=== PATIENT | male | born 1965 | race Caucasian/White ===

== ENCOUNTER 2025-05-04 10:24 | Emergency (ER) | payer BC ==
--- OUTSIDE RECORDS SUMMARY | 2025-05-04 10:28 | XMS REPORT | Continuity of Care Document ---
Author Name Unknown Address [address] [place] [address] [facility] [place] Address [address] [place] [address] Care Team Providers Care Contact Center Consultant Name Role Phone Daron Choe MD Primary Care Physician [phone] RAYNA CASIANO Attending Clinician FREDDY Sheets Attending Clinician Unavailable BALDO ZHOU Attending Clinician Unavailable JONATHON GIVENS Attending Clinician Unavail able TRED76 Attending Clinician Unavailable LAB90 Attending Clinician Unavailable RODNEY HAYWOOD Attending Clinician Unavailable SLIM ELIAS Attending Clinician Unavailab JOEL Taylor Attending Clinician Unavailable FLAVIO AVILEZ Attending Clinician Unavailable DARON CHOE Attending Clinician Unavailable DANIAL JOHNSON Attending Clinician Unavailable BACILIO MARIE Attending Clinician Unavailable FAN HAMILTON Attending Clinician KHADIJAH Desai Attending Clinician Unavailabl ENRICO Birch Attending Clinician Unavailable CHERELLE CARR Attending Clinician UnavailAracely Patel MD Attending Clinician [phone] Lab, Adc Fam Pob I Attending Clinician Unavailab Suzy Moran Attending Clinician [phone] SUZY BRANCH Attending Clinician Unavailabl e Payers Payer Name Policy Type Policy Number Effective Date Expirati on Date Source [facility] 9 [id number] 2020 00:00:00 Problems Condition Name Condition Details Condition Category Status Onset Date Resolution Date Last Treatment Date Treating Clinician Comments Source Well adult exam Well adult exam Disease Active 12-12 00:00: 00 Kimberly Secarlos albertoold - Externa l Primary hypertensi on Primary hypertensi on Disease Active 11-20 00:00: 00 Kimberly Secarlos albertoold - Externa l Bronchitis Bronchitis Disease Active 09-22 00:00: 00 Kimberly Seybold - Externa l Thoracic aortic aneurysm without rupture Thoracic aortic aneurysm without rupture Disease Active 02-01 00:00: 00 Overview: Formattin g of this note might be different from the original. ECHO showed dilated aortic root 4.2 cm and dilated ascending aorta 4.1 cm. Kimberly Joynerold - Externa l ASD (atrial septal defect) (HHS-HCC) ASD (atrial septal defect) (HHS-HCC) Disease Active 01-03 00:00: 00 Overview: Formattin g of this note might be different from the original. ECHO showed ASD shunts from left to right. Normal EF 65-70%. Normal atrial and ventricle size. Mild Mitral regurgita tion. Aortic root dilated 4.2 cm. Ascending aorta dilated 4.1 cm. Kimberly Secarlos albertoold - Externa l Nonrheumat ic mitral valve regurgitat ion Nonrheumat ic mitral valve regurgitat ion Disease Active 01-03 00:00: 00 Overview: Formattin g of this note might be different from the original. ECHO showed mild mitral regurgita tion. Kimberly Seybold - Externa l Palpitatio ns Palpitatio ns Disease Active 12-07 00:00: 00 Kimberly Joynerold - Externa l Prehyperte nsion Prehyperte nsion Disease Active 12-07 00:00: 00 Kimberly Seybold - Externa l Primary hypertensi on Primary hypertensi on Disease Active 12-07 00:00: 00 Kimberly Seybold - Externa l Seasonal allergies Seasonal allergies Disease Active 12-20 00:00: 00 Kimberly Joynerold - Externa l Family history of atrial fibrillati on Family history of atrial fibrillati on Disease Active Kimberly Joynerold - Externa l Family history of melanoma Family history of melanoma Disease Active Kimberly Seybold - Externa l Allergies, Adverse Reactions, Alerts Allergy Name Allergy Type Status Severity Reaction(s) Onset Date Inactive Date Treating Clinician Comments Source NO KNOWN ALLERGIE S Drug Class Active [facility] Social History Social Habit Start Date Stop Date Quantity Comments Source Sexual orientation 2021-12-07 08:05:49 Heterosexual (finding) Kimberly Joynerold - External History SDOH Alcohol Std Drinks Kimberly middleton - External History SDOH Alcohol Binge Kimberly Singh - External History of Occupation Kimberly Singh - External Gender identity Sruthi Singh - External Alcoholic beverage intake 2025-02-04 00:00:00 2025-02-04 00:00:00 Current drinker of alcohol (finding) Kimberly Singh - External Alcohol Comment 2024-12-12 00:00:00 2024-12-12 00:00:00 rarely Kimberly Singh - External History of Social function 2024-11-20 00:00:00 2024-11-20 00:00:00 Kimberly Singh - External Alcohol intake 2023-09-27 00:00:00 2023-09-27 00:00:00 Ex-drinker (finding) Kimberly Singh - External Education 2021-12-07 00:00:00 2021-12-07 00:00:00 17 Kimberly Singh - External Tobacco use and exposure 2021-12-07 00:00:00 2021-12-07 00:00:00 Smokeless tobacco non-user Kimberly Singh - External Exposure to SARS-CoV-2 (event) 2021-10-16 00:00:00 2021-11-15 08:24:00 Not sure Kimberly Singh History SDOH Alcohol Frequency 2020-12-20 00:00:00 2020-12-20 00:00:00 1 Kimberly Singh - External Sex 2020-12-14 17:33:02 2020-12-14 17:33:02 Male (finding) Kimberly Singh - External Sex assigned at 1965 00:00:00 1965 00:00:00 Kimberly Uribe Smoking Status Start Date Stop Date Source Unknown if [facility] Never smoked tobacco Kimberly Uribe Medications Ordered Medication Name Filled Medication Name Start Date Stop Date Current Medication? Ordering Clinician Indication Dosage Frequency Signature (SIG) Comments Components Source Multiple Vitamins-Mi nerals (Multi Adult Gummies) oral Chewable Tablet 02-04 16:03: 03 Yes 1{tbl} QD Take 1 tablet by mouth daily. Kimberly shah Zinc 100 MG oral Tablet 02-04 16:03: 03 Yes 1{tbl} QD Take 1 tablet by mouth daily. Kimberly shah Cholecalcif ari (Vitamin D) 25 MCG (1000 UT) oral Tablet 02-04 16:03: 03 Yes 25U QD Take 25 units by mouth daily. Kimberly shah Cetirizine (ZyrTEC Allergy) 10 MG oral Tablet 02-04 16:03: 03 Yes 75 10mg QD Take 1 tablet (10 mg total) by mouth daily. Indication s: Hayfever Kimberly shah Creatine does not apply Powder 02-04 16:03: 03 Yes 5mg QD Take 5 mg by mouth daily. Kimberly shah Celecoxib (CeleBREX) 100 MG oral Capsule 02-04 00:00: 00 Yes [id number] 100mg Q.5D Take 1 capsule (100 mg total) by mouth 2 times daily as needed. Kimberly shah Tizanidine HCl 2 MG oral Tablet 02-04 00:00: 00 Yes [id number] 2mg QD Take 1 tablet (2 mg total) by mouth nightly as needed. Kimberly shah Losartan Potassium 25 MG oral Tablet -08 00:00: 00 Yes 25mg QD Take 1 tablet (25 mg total) by mouth daily. Kimberly shah Creatine does not apply Powder - 15:07: 56 Yes 5mg QD 5 mg by does not apply route daily. Kimberly shah Cetirizine (ZyrTEC Allergy) 10 MG oral Tablet 12-12 15:07: 01 Yes 75 10mg QD Take 1 tablet (10 mg total) by mouth daily. Indication s: Hayfever Kimberly shah Cholecalcif ari (Vitamin D) 25 MCG (1000 UT) oral Tablet 12-12 15:06: 33 Yes 25U QD Take 25 units by mouth daily. Kimberly shah Zinc 100 MG oral Tablet 12-12 15:06: 04 Yes 1{tbl} QD Take 1 tablet by mouth daily. Kimberly shah Multiple Vitamins-Mi nerals (Multi Adult Gummies) oral Chewable Tablet 12-12 14:31: 29 Yes 1{tbl} Take 1 tablet by mouth Kimberly shah Metoprolol Succinate 25 MG oral TABLET SR 24 HR 12-12 00:00: 00 Yes [id number] 12.5mg QD Take 0.5 tablets (12.5 mg total) by mouth daily Take 1/2 tablet (12.5 mg tablet) by mouth daily. Kimberly shah Magnesium Salicylate 500 MG oral Tablet 12-12 00:00: 00 Yes 1{tbl} Q.5D Take 1 tablet by mouth in the morning and 1 tablet before bedtime. Kimberly shah Multiple Vitamins-Mi nerals (Multi Adult Gummies) oral Chewable Tablet 11-20 08:07: 16 Yes 1{tbl} Take 1 tablet by mouth Kimberly shah Metoprolol Succinate 25 MG oral TABLET SR 24 HR 11-20 00:00: 00 12-12 00:00 :00 No [id number] Take 1/2 tablet (12.5 mg tablet) by mouth daily. Kimberly shah Multiple Vitamins-Mi nerals (Multi Adult Gummies) oral Chewable Tablet 1-11 13:26: 12 Yes 1{tbl} Take 1 tablet by mouth Kimberly shah Multiple Vitamins-Mi nerals (Multi Adult Gummies) oral Chewable Tablet 09-23 09:50: 51 Yes 1{tbl} Take 1 tablet by mouth Kimberly shah Amoxicillin -Pot Clavulanate 875-125 MG oral Tablet 09-23 00:00: 00 11-20 00:00 :00 No 1{tbl} Q.5D Take 1 tablet by mouth 2 times daily. Kimberly shah predniSONE (DELTASONE) 20 MG oral tablet 09-23 00:00: 00 11-20 00:00 :00 No Take 2 tabs daily for 7 days. Kimberly shah Benzonatate (Tessalon Perles) 100 MG oral Capsule 09-23 00:00: 00 11-20 00:00 :00 No 100mg Q.[id number] 3D Take 1 capsule (100 mg total) by mouth 3 times daily as needed for cough. Kimberly shah methylPREDN ISolone 4 MG oral Tablet Therapy Pack 05-01 00:00: 00 Yes [id number] Take 1 kiesha by mouth See Admin Instructio ns Use as directed Kimberly shah Pseudoephed rine-Guaife nesin (Mucinex D Max Strength) 120-1200 MG oral Tablet 12 Hour Sustained Release 05-01 00:00: 00 Yes [id number] 1{tbl} Take 1 tablet by mouth every 12 hours Kimberly shah Benzonatate (Tessalon Perles) 100 MG oral Capsule 05-01 00:00: 00 Yes [id number] 100mg Q.[id number] 3D Take 1 capsule (100 mg total) by mouth 3 times daily as needed for cough Kimberly shah FLUTICASONE PROPIONATE, NASAL, (Flonase) 50 MCG/ACT nasal Suspension 05-01 00:00: 00 Yes [id number] 50ug QD Use 1 spray (50 mcg total) in each nostril daily as needed for rhinitis Kimberly shah Azithromyci n 250 MG oral Tablet 05-01 00:00: 00 05-07 04:59 :00 No [id number] Take 2 tablets by mouth on day 1 then 1 tablet by mouth daily for 4 days thereafter . Kimberly shah FLUTICASONE PROPIONATE, NASAL, 50 MCG/ACT nasal Suspension 10-05 00:00: 00 05-01 00:00 :00 No [id number] USE 2 SPRAYS (100 MCG TOTAL) INTO EACH NOSTRIL EVERY DAY Kimberly shah Triamcinolo ne Acetonide (KENALOG) 40 mg/mL 09-22 14:30: 00 09-22 14:15 :00 No [id number] 40mg Kimberly shah Fexofenadin e HCl 60 MG oral Tablet 09-22 07:59: 57 Yes 60mg Take 60 mg by mouth daily Kimberly shah Multiple Vitamins-Mi nerals (Multi Adult Gummies) oral Chewable Tablet 09-22 07:59: 57 Yes 1{tbl} Take 1 tablet by mouth Kimberly shah predniSONE (DELTASONE) 10 MG oral tablet 09-22 00:00: 00 05-01 00:00 :00 No [id number] One pill twice daily for 5 days then one pill daily for 5 days Kimberly shah Amoxicillin -Pot Clavulanate 875-125 MG oral Tablet 09-21 00:00: 00 Yes [id number] 1{tbl} Take 1 tablet by mouth 2 times daily Kimberly shah Aspirin (Aspirin 81) 81 MG oral Chewable Tablet 09-20 08:13: 32 09-20 00:00 :00 No 81mg Take 81 mg by mouth daily Kimberly shah Benzonatate (Tessalon Perles) 100 MG oral Capsule 09-20 00:00: 00 05-01 00:00 :00 No [id number] 100mg Q.[id number] 3D Take 1 capsule (100 mg total) by mouth 3 times daily as needed for cough Kimberly shah Azithromyci n 250 MG oral Tablet 09-20 00:00: 00 09-26 05:59 :00 No [id number] Take 2 tablets by mouth on day 1 then 1 tablet by mouth daily for 4 days thereafter . Kimberly shah FLUTICASONE PROPIONATE, NASAL, 50 MCG/ACT nasal Suspension 2021-09 00:00: 00 Yes [id number] 100ug Use 2 sprays (100 mcg total) in each nostril daily Kimberly shah Oseltamivir Phosphate (Tamiflu) 75 MG oral Capsule 2021-09 00:00: 00 09-19 05:59 :00 No [id number] 75mg Take 1 capsule (75 mg total) by mouth 2 times daily for 5 days Kimberly shah Aspirin (Aspirin 81) 81 MG oral Chewable Tablet 2021-09 16:30: 32 Yes 81mg Take 81 mg by mouth daily Kimberly shah Fexofenadin e HCl (Corie Allergy) 60 MG oral Tablet 2021-09 16:30: 32 Yes 60mg Take 60 mg by mouth daily Kimberly shah Multiple Vitamins-Mi nerals (Multi Adult Gummies) oral Chewable Tablet 2021-09 16:30: 32 Yes 1{tbl} Take 1 tablet by mouth Kimberly shah Metoprolol Succinate 25 MG oral Capsule ER 24 Hour Sprinkle 04-17 00:00: 00 11-20 00:00 :00 No 12.5mg 12.5 mg. Kimberly shah Aspirin (Aspirin 81) 81 MG oral Chewable Tablet 04-18 16:29: 35 Yes 81mg Take 81 mg by mouth daily Kimberly Singh Fexofenadin e HCl (Corie Allergy) 60 MG oral Tablet 04-18 16:29: 35 Yes 60mg Take 60 mg by mouth daily Kimberly Singh Multiple Vitamins-Mi nerals (Multi Adult Gummies) oral Chewable Tablet 04-18 16:29: 35 Yes 1{tbl} Take 1 tablet by mouth Kimberly Singh Vital Signs Vital Name Observation Time Observation Value Comments S ource Systolic blood pressure 2025-02-04 21:02:00 130 mm[Hg] Kimberly Seybo ld - External Diastolic blood pressure 2025-02-04 21:02:00 84 mm[Hg] Kimberly Seybo ld - External Heart rate 2025-02-04 21:02:00 71 /min Kelse y Seybold - External Body temperature 2025-02-04 21:02:00 36.67 Kriss Kimberly Seybold - External Respiratory rate 2025-02-04 21:02:00 18 /min Kimberly Seybold - External Body height 2025-02-04 21:02:00 185.4 cm Sruthi ey Seybold - External Body weight 2025-02-04 21:02:00 83.462 kg Sruthi ey Seybold - External BMI 2025-02-04 21:02:00 24.28 kg/m2 Sruthi ey Seybold - External Oxygen saturation in Arterial blood by Pulse oximetry 2025-02-04 21:02:00 99 /min Kimberly Felixybo ld - External Systolic blood pressure 2024-12-12 19:31:00 132 mm[Hg] Kimberly Seybo ld - External Diastolic blood pressure 2024-12-12 19:31:00 82 mm[Hg] Kimberly Felixybo ld - External Heart rate 2024-12-12 19:31:00 70 /min Zafarse y Seybold - External Body temperature 2024-12-12 19:31:00 36.72 Kriss Kimberly Seybold - External Respiratory rate 2024-12-12 19:31:00 16 /min Kimberly Seybold - External Body height 2024-12-12 19:31:00 188 cm Sruthi ey Seybold - External Body weight 2024-12-12 19:31:00 84.097 kg Sruthi ey Seybold - External BMI 2024-12-12 19:31:00 23.80 kg/m2 Sruthi ey Seybold - External Oxygen saturation in Arterial blood by Pulse oximetry 2024-12-12 19:31:00 99 /min Kimberly Felixybo ld - External Systolic blood pressure 2024-11-20 13:56:00 132 mm[Hg] Kimberly Joynero ld - External Diastolic blood pressure 2024-11-20 13:56:00 80 mm[Hg] Kimberly Joynero ld - External Heart rate 2024-11-20 13:56:00 70 /min Kelse y Seybold - External Body temperature 2024-11-20 13:56:00 36.94 Kriss Kimberly Seybold - External Respiratory rate 2024-11-20 13:56:00 20 /min Kimberly Seybold - External Body weight 2024-11-20 13:56:00 85.333 kg Sruthi ey Seybold - External BMI 2024-11-20 13:56:00 24.82 kg/m2 Sruthi ey Seybold - External Oxygen saturation in Arterial blood by Pulse oximetry 2024-11-20 13:56:00 99 /min Kimberly Joynero ld - External Body height 2023-09-27 19:26:00 185.4 cm Sruthi ey Seybold - External Body weight 2023-09-27 19:26:00 78.472 kg Sruthi ey Seybold - External BMI 2023-09-27 19:26:00 22.82 kg/m2 Sruthi ey Seybold - External Systolic blood pressure 2022-09-22 13:57:00 122 mm[Hg] Kimberly Felixybo ld - External Diastolic blood pressure 2022-09-22 13:57:00 74 mm[Hg] Kimberly Joynero ld - External Heart rate 2022-09-22 13:57:00 76 /min Zafarse y Seybold - External Body temperature 2022-09-22 13:57:00 36.44 Kriss Kimberly Seybold - External Respiratory rate 2022-09-22 13:57:00 14 /min Kimberly Seybold - External Body height 2022-09-22 13:57:00 185.4 cm Sruthi ey Seybold - External Body weight 2022-09-22 13:57:00 80.74 kg Sruthi ey Seybold - External BMI 2022-09-22 13:57:00 23.48 kg/m2 Sruthi ey Seybold - External Encounters Start Date/Time End Date/Time Encounter Type Admission Type Attending [facility] Care Department Encounter ID Source 2025-12-21 09:00:00 2025-12-21 09:00:00 Outpatient WARAYNA TAVERAS KIMBERLY PRINCE [id number] [facility] 2025-06-12 09:30:00 2025-06-12 09:30:00 Outpatient FREDDY NAVA [facility]IMBER[facility] PRINCE [id number] [facility] 2025-05-14 08:00:00 2025-05-14 08:00:00 Outpatient BALDO ZHOU [id number] [facility]25-03-19 00:00:00 2025-03-19 00:00:00 Outpatient RAYNA CASIANO [facility] PRINCE [id number] [facility] 2025-03-18 10:15:00 2025-03-18 10:15:00 Outpatient PREZAFREDDY Ang [facility] PRINCE [id number] [facility] 2025-03-17 00:00:00 2025-03-17 00:00:00 Outpatient FREDDY NAVA KIMBERLY PRINCE [id number] [facility] 2025-02-26 00:00:00 2025-02-26 00:00:00 Outpatient PREZASFREDDY KIMBERLY PRINCE [id number] [facility] 2025-02-13 00:00:00 2025-02-13 00:00:00 Outpatient FREDDY NAVA KIMBERLY PRINCE [id number] [facility] 2025-02-06 11:10:00 2025-02-06 11:10:00 Outpatient KIMBERLY PRINCE [id number] [facility] 2025-02-06 11:05:00 2025-02-06 11:05:00 Outpatient KIMBERLY PRINCE [id number] [facility] 2025-02-04 16:15:00 2025-02-04 16:15:00 Outpatient FREDDY NAVA KIMBERLY PRINCE [id number] [facility] 2025-02-04 00:00:00 2025-02-04 00:00:00 Outpatient KIMBERLY PRINCE [id number] [facility] 2025-02-02 00:00:00 2025-02-02 00:00:00 Outpatient FREDDY NAVA KIMBERLY PRINCE [id number] Kimberly Felixmikhail 2025-01-05 00:00:00 2025-01-05 00:00:00 Outpatient RAYNA CASIANO [facility]BERLY PRINCE [id number] [facility]25-01-02 00:00:00 2025-01-02 00:00:00 Outpatient RASHAUNIRMAJONATHON Pastor KIMBERLY PRINCE [id number] [facility] 2025-01-01 13:30:00 2025-01-01 13:30:00 Outpatient KIMBERLY PRINCE [id number] [facility] 2025-01-01 08:45:00 2025-01-01 08:45:00 Outpatient RAYNA CASIAN[facility]IN[facility] [id number] [facility]-23 08:30:00 2024-12-23 08:30:00 Outpatient TRED76 [facility]IM[facility]LY PRINCE [id number] [facility] 2024-12-23 08:00:00 2024-12-23 08:00:00 Outpatient RAYNA CASIANO KIMBERLY PRINCE [id number] [facility] 2024-12-16 00:00:00 2024-12-16 00:00:00 Outpatient FREDDY NAVA [facility] PRINCE [id number] [facility] 2024-12-16 00:00:00 2024-12-16 00:00:00 Outpatient KIMBERLY PRINCE [id number] [facility] 2024-12-15 08:05:00 2024-12-15 08:05:00 Outpatient LAB90 KIMBERLY PRINCE [id number] [facility] 2024-12-12 14:45:00 2024-12-12 14:45:00 Outpatient FREDDY NAVA KIMBERLY PRINCE [id number] [facility] 2024-12-12 00:00:00 2024-12-12 00:00:00 Outpatient KIMBERLY PRINCE [id number] Kimberly Seybmikhail 2024-11-20 08:00:00 2024-11-20 08:00:00 Outpatient RODNEY HAYWOOD [id number] Kimberly Seybold 2024-11-18 00:00:00 2024-11-18 00:00:00 Outpatient PREFREDDY KNIGHT KIMBERLY PRINCE [id number] [facility] 2024-11-18 00:00:00 2024-11-18 00:00:00 Outpatient MARENFRANSISCORAYNA Khan KIMBERLY PRINCE [id number] [facility] 2023-09-27 13:30:00 2023-09-27 13:30:00 Outpatient CURT SLIMDragan PRINCE [id number] [facility] 2023-09-23 10:30:00 2023-09-23 10:30:00 Outpatient MIGUELJOEL KIMBERLY PRINCE [id number] [facility] 2023-09-23 00:00:00 2023-09-23 00:00:00 Outpatient FLAVIO AVILEZ KIMBERLY PRINCE [id number] [facility] 2023-06-18 07:30:00 2023-06-18 07:30:00 Outpatient KIMBERLY PRINCE [id number] [facility] 2023-06-18 00:00:00 2023-06-18 00:00:00 Outpatient DARON CHOE [facility]IMBERLY PRINCE [id number] [facility] 2023-06-14 13:45:00 2023-06-14 13:45:00 Outpatient TREJulian6 KIMBERLY PRINCE [id number] [facility] 2023-06-14 13:15:00 2023-06-14 13:15:00 Outpatient RAYNA CASIANO [facility] PRINCE [id number] [facility] 2023-05-01 09:45:00 2023-05-01 09:45:00 Outpatient DANIAL JOHNSON KIMBERLY PRINCE [id number] [facility] 2023-05-01 07:05:00 2023-05-01 07:05:00 Outpatient BACILIO MARIE [id number] Kimberly Seybold 2023-05-01 00:00:00 2023-05-01 00:00:00 Outpatient PREBIASRFEDDY KIMBERLY PRINCE [id number] [facility] 2023-04-27 13:30:00 2023-04-27 13:30:00 Outpatient HARMS, FAN PRINCE KIMBERLY [id number] Kimberly [facility] 2023-04-05 00:00:00 2023-04-05 00:00:00 Outpatient PREZAS, FREDDY PRINCE KIMBERLY [id number] Kimberly [facility] 2023-04-04 00:00:00 2023-04-04 00:00:00 Outpatient KIMBERLY KIMBERLY [id number] Kimberly [facility] 2023-04-04 00:00:00 2023-04-04 00:00:00 Outpatient PREZAS, FREDDY PRINCE KIMBERLY [id number] Kimberly [facility] 2023-03-29 00:00:00 2023-03-29 00:00:00 Outpatient KIMBERLY KIMBERLY [id number] Kimberly [facility] 2022-11-06 09:15:00 2022-11-06 09:15:00 Outpatient PREZAS, FREDDY KIMBERLY KIMBERLY [id number] [facility] 2022-10-20 08:45:00 2022-10-20 08:45:00 Outpatient PREZAS, FREDDY PRINCE KIMBERLY [id number] [facility] 2022-10-05 00:00:00 2022-10-05 00:00:00 Outpatient WUKHADIJAH [id number] [facility] 2022-09-22 09:15:00 2022-09-22 09:15:00 Outpatient PREZAS, FREDDY KIMBERLY PRINCE [id number] Kimberly [facility] 2022-09-21 13:30:00 2022-09-21 13:30:00 Outpatient PREZAS, FREDDY KIMBERLY KIMBERLY [id number] Kimberly [facility] 2022-09-21 00:00:00 2022-09-21 00:00:00 Outpatient PREZAS, FREDDY KIMBERLY PRINCE [id number] Kimberly [facility] 2022-09-20 10:00:00 2022-09-20 10:00:00 Outpatient PREZAS, FREDDY KIMBERLY PRINCE [id number] [facility] 2022-09-13 14:15:00 2022-09-13 14:15:00 Outpatient WUKHADIJAH ACUNASEY KIMBERLY [id number] Kimberly Singh 2022-08-03 00:00:00 2022-08-03 00:00:00 Outpatient FREDDY NAVA KIMBERLY PRINCE [id number] Kimberly Singh 2022-08-03 00:00:00 2022-08-03 00:00:00 Outpatient FREDDY NAVA KIMBERLY PRINCE [id number] Kimberly Singh 2022-02-15 00:00:00 2022-02-15 00:00:00 Outpatient FREDDY NAVA KIMBERLY PRINCE [id number] Kimberly Singh 2022-01-31 00:00:00 2022-01-31 00:00:00 Outpatient FREDDY NAVA KIMBERLY PRINCE [id number] [facility] 2021-12-23 00:00:00 2021-12-23 00:00:00 Outpatient FREDDY NAVA KIMBERLY PRINCE [id number] Kimberly [facility] 2021-12-13 10:15:00 2021-12-13 10:15:00 Outpatient ENRICO HOWELL KIMBERLY PRINCE [id number] Kimberly Felixmikhail 2021-12-08 08:20:00 2021-12-08 08:20:00 Outpatient VASILIY KIMBERLY PRINCE [id number] Kimberly [facility] 2021-12-07 08:45:00 2021-12-07 08:45:00 Telemedici ne FREDDY NAVA [place] [id number] Kimberly mikhail 2021-12-07 00:00:00 2021-12-07 00:00:00 Outpatient KIMBERLY PRINCE [id number] Kimberly mikhail 2021-12-07 00:00:00 2021-12-07 00:00:00 Outpatient DARON CHOE KIMBERLY PRINCE [id number] [facility] 2021-12-07 00:00:00 2021-12-07 00:00:00 Outpatient FREDDY NAVA KIMBERLY PRINCE [id number] Kimberly [facility] 2021-11-16 09:45:00 2021-11-16 09:45:00 Outpatient CHERELLE CARR KIMBERLY PRINCE [id number] [facility] 2021-04-20 00:00:00 2021-04-20 00:00:00 Telephone Aracely Ulrich [facility] [id number] [facility] 2021-04-19 09:00:00 2021-04-19 09:00:00 Outpatient DARON CHOE KIMBERLY PRINCE [id number] [facility] 2021-04-18 16:30:00 2021-04-18 16:30:00 Outpatient ENRICO HOWELL KIMBERLY PRINCE [id number] [facility] 2021-04-18 10:35:58 2021-04-18 10:55:58 Laboratory Only Lab, Adc Fam Pob I Roselia [facility] [id number] [facility] 2021-04-18 10:40:00 2021-04-18 10:40:00 Outpatient Milton [facility] [id number] [facility] Notes Date/Time Note Provider Source 2025-02-04 16:03:09 Chief Complaint Patient presents with Back Pain Foot Pain T [facility] 2024-12-12 14:31:29 Chief Complaint Patient presents with Routine Follow-up [facility] 2024-11-20 08:02:05 Chief Complaint Patient presents with Follow-up Needs refill on BP medications Zeny Dailey [facility] 2023-09-27 13:26:12 Chief Complaint Patient presents with Cough Dry cough x5days [phone] (home) Bala Kim CMA I [facility] 2023-09-23 09:50:51 Chief Complaint Patient presents with URI Fever, headache, runny nose - See T 09/23 [facility]
[2025-05-04 10:47] LABS: Absolute Lymphocytes (CBC) 1.3 K/uL (0.7-4.9); Hematocrit 42.7 % (39.6-49.0); Hemoglobin 14.9 g/dL (13.6-17.9); MCH 32.4 pg (27.0-35.0); MCHC 34.9 g/dL (32.0-36.0); MCV 92.8 fL (80-100); MPV 7.8 fL (7.6-11.3); Nucleated RBC Absolute Count 0.0 (0-0); Nucleated Red Blood Cells % 0.1 % (0-0); RBC Red Blood Cell Count 4.60 M/uL (4.33-5.43); White Blood Count 5.50 thou/uL (4.3-10.9)
[2025-05-04 10:58] LABS: PT Prothrombin Time 13.4 SECONDS (10-13.0); Protime INR 1.19
[2025-05-04 11:19] LABS: ALT/SGPT 34.0 U/L (16-61); AST/SGOT 18.0 U/L (15-37); Albumin 3.7 g/dL (3.4-5.0); Albumin/Globulin Ratio 1.4 (1.1-1.8); Alkaline Phosphatase 53.0 U/L (45-117); Anion Gap 6.2 mEq/L (5.0-15.0); BUN Blood Urea Nitrogen 27.0 mg/dL (7-18); Bilirubin Indirect, Calculated 0.5 mg/dL (0.2-0.8); Globulin 2.7 g/dL (2.3-3.5); Glucose Level 98.0 mg/dL (74-106); Magnesium 2.2 mg/dL (1.6-2.4); NT PRO-BNP 27.0 pg/mL (<125); Potassium 4.2 mEq/L (3.5-5.1); Troponin High Sensitivity 4.6 pg/mL (<58.9)
--- NOTE | 2025-05-04 11:49 | RAD REPORT ---
EXAM: Angio Aorta For Dissection CLINICAL INDICATION: Male, 60 years chest pain TECHNIQUE: CTA of the aorta was obtained including the chest, abdomen and pelvis, with IV contrast, a s per department protocol. Axial, sagittal and coronal reconstructions were obtained. Post-processing was applied at the acquisition scanner with concurrent physician supervision which in cludes 3D reconstructions, MIPs, volume rendered images and/or shaded surface rendering. One or more of the following dose reduction techniques were used: Automated exposure control, adjustment of the mA and/or kV according to the patient size, and/or iterative reconstruction. Unless otherwise specified, incidental findings do not require dedicated imaging follow-up. [id number]. COMPARISON: CT 01/12/2022 FINDINGS: ---THORAX--- LOWER NECK AND CHEST WALL: Visualized thyroid gland and soft tissues are normal. MEDIASTINUM AND LYMPH NODES: No mediastinal mass or fluid collection. Normal size mediastinal, hilar, and axillary lymph nodes. THORACIC AORTA: Ascending thoracic aortic aneurysm measuring 4.2 cm. The aortic root at the level of the sinuses of Valsalva measures 4.7 cm. Both findings are unchanged. No dissection. PULMONARY ARTERIES: Caliber is within normal limits. No pulmonary emboli identified. HEART: Normal heart size. No coronary calcifications.No significant pericardial effusion. LUNGS AND AIRWAYS: Airways are clear. No evidence of airspace or interstitial process. No suspicious and/or stable pulmonary nodules. PLEURA: No pleural effusion. No pneumothorax. ---ABDOMEN/PELVIS--- UPPER GI: No significant abnormality. LIVER: Benign appearing low density liver lesions. No suspicious mass. GALLBLADDER/BILE DUCTS: No biliary ductal dilatation.? PANCREAS: No mass, ductal dilation, or rae-pancreatic fluid. SPLEEN: Unremarkable. ADRENALS: No adrenal masses. KIDNEYS AND URETERS: No hydronephrosis.Unchanged indeterminate attenuation right upper pole renal les ion measuring 1.7 cm. ABDOMINAL AORTA AND OTHER VESSELS: Normal caliber aorta and IVC. PERITONEUM: No abnormal free fluid. No free air. LYMPH NODES: No pathologic lymphadenopathy. ABDOMINAL WALL: Fat containing inguinal hernias. SMALL BOWEL/COLON: Small bowel has normal course and caliber. No colonic wall thickening or pericolon ic inflammatory changes.Normal appendix. Moderate diverticulosis without diverticulitis. Moderate formed stool burden. URINARY BLADDER: Underdistended but grossly unremarkable. REPRODUCTIVE ORGANS: No pathologic process. ---COMBINED--- MUSCULOSKELETAL: Mild to moderate disc height loss at L5-S1 mild disc height loss at L4-5. ADDITIONAL FINDINGS: None. IMPRESSION: No aortic dissection. Unchanged ascending thoracic aortic aneurysm measuring 4.2 cm. The aortic root at the level of the sinuses of Valsalva is also similarly dilated at 4.7 cm. Intermediate attenuation right upper pole renal lesion is probably a proteinaceous cyst and is unchan ged since 01/12/2022.
--- NOTE | 2025-05-04 12:01 | RAD REPORT ---
EXAM: Chest Single View HISTORY: 60 years Male CHEST PAIN COMPARISON: No prior exams FINDINGS: LUNGS/PLEURA: The lungs are clear. No pleural effusions or pneumothorax. No pulmonary edema. CARDIAC/MEDIASTINUM: The cardiac silhouette is within normal limits. UPPER ABDOMEN: No significant abnormality. BONES: No acute abnormality. LINES/TUBES/OTHER: N/A IMPRESSION: No evidence of acute cardiopulmonary disease.
--- NOTE | 2025-05-04 14:11 | ER ---
Nurse's Notes [facility] Name: Antonio Munoz Age: 60 yrs Sex: Male : 1965 Arrival Date: 05/04/2025 Time: 10:24 Bed 17 Private MD: Diagnosis: Chest pain, unspecified Presentation: 05/04 10:30 Chief complaint: Patient states: left sided chest pain started at 0945 today, pain iw started in his ;eft shoulder blade and he felt tingling on his left side but that has resolved, pain is dull and deep. Coronavirus screen: At this time, the client does not indicate any symptoms associated with coronavirus-19. Ebola Screen: No symptoms or risks identified at this time. Risk Assessment: Do you want to hurt yourself or someone else? Patient reports no desire to harm self or others. Onset of symptoms was May 04, 2025. 10:30 Method Of Arrival: Ambulatory iw 10:30 Acuity: HERMES 2 iw 14:21 Initial Sepsis Screen: Does the patient meet any 2 criteria? No. Patient's initial ar8 sepsis screen is negative. Does the patient have a suspected source of infection? No. Patient's initial sepsis screen is negative. Historical: - Allergies: 10:31 No Known Allergies; iw - Home Meds: 10:31 losartan oral daily [Active]; iw - PMHx: 10:31 Hypertensive disorder; iw - PSHx: 10:31 None; iw - Immunization history:: Adult Immunizations not up to date. - Infectious Disease History:: Denies. - Social history:: Smoking status: Patient denies any tobacco usage or history of. Screenin:15 [facility] ED Fall Risk Assessment (Adult) History of falling in the last 3 months, ar8 including since admission No falls in past 3 months (0 pts) Confusion or Disorientation No (0 pts) Intoxicated or Sedated No (0 pts) Impaired Gait No (0 pts) Mobility Assist Device Used No (0 pt) Altered Elimination No (0 pt) Score/Fall Risk Level 0 - 2 = Low Risk. Abuse screen: Denies threats or abuse. Nutritional screening: No deficits noted. Tuberculosis screening: No symptoms or risk factors identified. Assessment: 10:32 General: Appears in no apparent distress. Behavior is calm, cooperative, appropriate ar8 for age. Pain: Complains of pain in anterior aspect of left upper chest and left breast Pain radiates to left scapular area Pain currently is 5 out of 10 on a pain scale. Quality of pain is described as shooting, Pain began 1 hour ago. 10:32 Neuro: No deficits noted. Level of Consciousness is awake, alert, obeys commands, ar8 Oriented to person, place, time, situation. Cardiovascular: No deficits noted. Reports chest pain. Cardiovascular: Reports chest pain. Respiratory: No deficits noted. Airway is patent Respiratory effort is even, unlabored, Respiratory pattern is regular, symmetrical. GI: Abdomen is flat, Reports nausea. 12:56 Reassessment: Patient and/or family updated on plan of care and expected duration. Pain ar8 level reassessed. Patient is alert, oriented x 3, equal unlabored respirations, skin warm/dry/pink. Patient states symptoms have improved. Patient states he continues with slight discomfort to left chest. 09/26. . Vital Signs: 11:15 BP 156 / 109; Pulse 59; Resp 15 S; Pulse Ox 97% on R/A; ar8 12:45 BP 145 / 94; Pulse 57; Resp 16; Pulse Ox 96% on R/A; Pain 1/10; ar8 13:45 BP 155 / 100; Pulse 62; Resp 15; Pulse Ox 100% on R/A; ar8 14:00 BP 162 / 96; Pulse 60; Resp 16; Pulse Ox 100% on R/A; Pain 1/10; ar8 12:45 Pain Scale: Adult ar8 14:00 Pain Scale: Adult ar8 ED Course: 10:25 Patient arrived in ED. mr 10:26 Carlos Barrios, ROYAL is Primary Nurse. ar8 10:26 Tomy Castro DO is Attending Physician. ms3 10:31 Triage completed. iw 10:32 Bed in low position. Call light in reach. Side rails up X2. ar8 10:32 Provided Education on: plan of care, diagnostics and estimated wait time. Client placed ar8 on continuous cardiac and pulse oximetry monitoring. NIBP monitoring applied. 10:32 No provider procedures requiring assistance completed. Patient maintains SpO2 ar8 saturation greater than 95% on room air. 10:40 Inserted saline lock: 22 gauge 24 gauge in left antecubital area, using aseptic ar8 technique. Blood collected. Flushed with 10 mL NS. 10:46 Arm band placed on. iw 11:28 CT Aorta for Dissection In Process Unspecified. EDMS 11:43 XRAY Chest (1 view) In Process Unspecified. EDMS 12:54 Troponin High Sensitivity Sent. ar8 14:09 Amandeep Gibson MD is Referral Physician. ms3 14:20 IV discontinued, intact, bleeding controlled, No redness/swelling at site. Pressure ar8 dressing applied. Administered Medications: 10:51 CANCELLED (Physician Discretion): aspirinchewable tablet 324 mg PO once; 81 mg tablets ms3 x 4 Medication: 11:15 VIS not applicable for this client. ar8 Outcome: 14:10 Discharge ordered by . ms3 14:27 Discharged to home ambulatory, with significant other, ar8 14:27 Condition: stable 14:27 Discharge instructions given to patient, significant other, Instructed on discharge instructions, follow up and referral plans. Demonstrated understanding of instructions, follow-up care, 14:27 Patient left the ED. ar8 Signatures: Dispatcher [employer] EDMS Debbie Fleming, Reg Reg mr Kylah Madrigal, RN RN iw Tomy Castro, DO ms3 Carlos Barrios, ROYAL RN ar8
--- NOTE | 2025-05-04 14:11 | EDPHYS ---
Physician Documentation [facility] Name: Antonio Munoz Age: 60 yrs Sex: Male : 1965 Arrival Date: 05/04/2025 Time: 10:24 Bed 17 Private MD: ED Physician Tomy Castro HPI: 05/04 10:49 This 60 yrs old Male presents to ER via Ambulatory with complaints of Chest Pain. ms3 10:49 60-year-old male with past medical history of hypertension, aortic aneurysm presents to [facility] emergency department for chest pain that began at 9:45 AM. Patient states the pain began in his left shoulder blade and moved to his left anterior chest. Patient states he did just come up the stairs and was sitting when his pain began. Patient endorses nausea. Patient denies vomiting, shortness of breath, diaphoresis. Patient denies any alleviating or inciting factors. Patient states when the pain began it was an 8/10 and is currently a 5/10.. Historical: - Allergies: 10:31 No Known Allergies; iw - Home Meds: 10:31 losartan oral daily [Active]; iw - PMHx: 10:31 Hypertensive disorder; iw - PSHx: 10:31 None; iw - Immunization history:: Adult Immunizations not up to date. - Infectious Disease History:: Denies. - Social history:: Smoking status: Patient denies any tobacco usage or history of. ROS: 10:49 Constitutional: Negative for fever, and chills. ms3 10:49 Respiratory: Negative for shortness of breath, cough, wheezing, and pleuritic chest pain, Abdomen/GI: Negative for abdominal pain, nausea, vomiting, diarrhea, and constipation, MS/Extremity: Negative for injury and deformity, Skin: Negative for injury, rash, and discoloration, 10:49 Cardiovascular: Positive for chest pain, Exam: 10:49 Constitutional: This is a well developed, well nourished patient who is awake, alert, ms3 and in no acute distress. Cardiovascular: Regular rate and rhythm with a normal S1 and S2. No gallops, murmurs, or rubs. Normal PMI, no JVD. No pulse deficits. Respiratory: Lungs have equal breath sounds bilaterally, clear to auscultation and percussion. No rales, rhonchi or wheezes noted. No increased work of breathing, no retractions or nasal flaring. Abdomen/GI: Soft, non-tender, with normal bowel sounds. No distension or tympany. No guarding or rebound. No evidence of tenderness throughout. Skin: Warm, dry with normal turgor. Normal color with no rashes, no lesions, and no evidence of cellulitis. Neuro: Awake and alert, GCS 15, oriented to person, place, time, and situation. Cranial nerves II-XII grossly intact. Motor strength 5/5 in all extremities. Sensory grossly intact. Cerebellar exam normal. Normal gait. 18:14 ECG was reviewed by the Attending Physician. ms3 Vital Signs: 11:15 BP 156 / 109; Pulse 59; Resp 15 S; Pulse Ox 97% on R/A; ar8 12:45 BP 145 / 94; Pulse 57; Resp 16; Pulse Ox 96% on R/A; Pain 1/10; ar8 13:45 BP 155 / 100; Pulse 62; Resp 15; Pulse Ox 100% on R/A; ar8 14:00 BP 162 / 96; Pulse 60; Resp 16; Pulse Ox 100% on R/A; Pain 1/10; ar8 12:45 Pain Scale: Adult ar8 14:00 Pain Scale: Adult ar8 MDM: 10:45 Medical Screening Exam initiated ms3 10:49 Differential diagnosis: abnormal EKG, acute myocardial infarction, Aortic dissection. ms3 14:10 HEART Score: History: Slightly Suspicious (0), ECG: Normal (0), Age: > 45 and < 65 ms3 years (1), Risk Factors: 1 or 2 risk factors (1), [Hypertension] Troponin: < or = 1 x Normal Limit (0), Total Score = 1. Data reviewed: vital signs, nurses notes, lab test result(s), EKG, radiologic studies, and as a result, I will discharge patient. Consideration of Admission/Observation Escalation of care including admission/observation considered. Independent interpretation of the following test(s) in the Emergency Department X-Ray: My interpretation is CXR image reviewed by me does not reveal pneumonia or PTX. Independent interpretation of the following test(s) in the Emergency Department EKG: See my EKG interpretation above. Counseling: I had a detailed discussion with the patient and/or guardian regarding the historical points, exam findings, and any diagnostic results supporting the discharge/admit diagnosis, lab results, radiology results, the need for outpatient follow up, to return to the emergency department if symptoms worsen or persist or if there are any questions or concerns that arise at home. Special discussion: Based on the patient's history, exam, and Dx evaluation, there is no indication for emergent intervention or inpatient Tx. It is understood by the patient/guardian that if the Sx's persist or worsen they need to return immediately for re-evaluation. ED course: Discussed EKG, chest x-ray, CT, labs with the patient and his . Patient to follow-up with cardiology in 2 to 3 days. Patient understands and agrees with plan. All questions were answered. Return precautions discussed include worsening symptoms, or any other concerns. On reevaluation patient was alert and oriented x 4, no apparent distress, nontoxic-appearing, speaking full sentences, ambulatory in emergency department. 05/04 10:27 Order name: Basic Metabolic Panel; Complete Time: 11:27 ms3 05/04 10:27 Order name: CBC with Diff; Complete Time: 11:27 ms3 05/04 10:27 Order name: LFT's; Complete Time: 11:27 ms3 05/04 10:27 Order name: Magnesium; Complete Time: 11:27 ms3 05/04 10:27 Order name: NT PRO-BNP; Complete Time: 11:27 ms3 05/04 10:27 Order name: PT-INR; Complete Time: 11:27 ms3 05/04 10:27 Order name: Troponin HS; Complete Time: 11:27 ms3 05/04 12:14 Order name: Troponin High Sensitivity; Complete Time: 13:51 ms3 05/04 10:27 Order name: XRAY Chest (1 view); Complete Time: 12:13 ms3 05/04 10:45 Order name: CT Aorta for Dissection; Complete Time: 12:13 ms3 05/04 10:27 Order name: EKG; Complete Time: 10:28 ms3 05/04 10:27 Order name: Cardiac monitoring; Complete Time: 11:10 ms3 05/04 10:27 Order name: EKG - Nurse/Tech; Complete Time: 11:10 ms3 05/04 10:27 Order name: IV Saline Lock; Complete Time: 11:10 ms3 05/04 10:27 Order name: Labs collected and sent; Complete Time: 11:10 ms3 05/04 10:27 Order name: O2 Per Protocol; Complete Time: 11: ms3 05/04 10:27 Order name: O2 Sat Monitoring; Complete Time: 11: ms3 EC:14 Rate is 69 beats/min. Rhythm is regular. QRS [place] is Normal. MD interval is normal. QRS ms3 interval is normal. Clinical impression: Normal ECG. Interpreted by me. Reviewed by me. Administered Medications: 10:51 CANCELLED (Physician Discretion): aspirinchewable tablet 324 mg PO once; 81 mg tablets ms3 x 4 Disposition Summary: 05/04/25 14:10 Discharge Ordered Notes: Location: Home ms3 Condition: Stable ms3 Diagnosis - Chest pain, unspecified ms3 Followup: ms3 - With: Amandeep Gibson MD - When: 2 - 3 days - Reason: Recheck today's complaints Discharge Instructions: - Discharge Summary Sheet ms3 - Nonspecific Chest Pain, Adult ms3 Forms: - Medication Reconciliation Form ms3 - Antibiotic Education ms3 - Prescription Opioid Use ms3 - Patient Portal Instructions ms3 - Leadership Thank You Letter ms3 Signatures: Dispatcher [employer] Kylah Mazariegos RN RN Tomy Ozuna DO DO ms3 Corrections: (The following items were deleted from the chart) 10:51 10:27 Aspirin PO Chewable Tablet 324 mg PO once; 81 mg tablets x 4 ordered. ms3 ms3
[2025-05-04 19:58] VITALS: O2SAT 100
[2025-05-04 20:00] VITALS: BP 162/96
== END 2025-05-04 14:27 | disposition home or self-care (01) ==
LOC: ER 10:24
DX: R07.9 Chest pain, unspecified (principal); I10 Essential (primary) hypertension
CPT/HCPCS: 93005; 85025; 80048; 36415; 83735; 85610; 80076; 84484 ×2; 83880; 71275; 74175; 71045; 99284; Q9967